=== PATIENT | male | born 1955 | race African-American/Black ===

== ENCOUNTER 2021-03-29 11:59 | Observation (INO) ==
[2021-03-29 12:56] LABS: Basophils # (auto) 0.03 K/uL (0-0.2); Basophils % (auto) 0.2 %; Eosinophils # (auto) 0.01 K/uL (0-0.5); Eosinophils % (auto) 0.1 %; Hematocrit (blood only) 42.9 % (42-52); Hemoglobin 14.8 g/dL (14.0-18.0); Immature Granulocytes # (auto) 0.04 K/uL (0.00-0.02); Immature Granulocytes % (auto) 0.3 %; Lymphocytes # (auto) 1.15 K/uL (1.2-3.4); Lymphocytes % (auto) 7.8 %; Mean Corpuscular Hemoglobin 30.7 pg (25-34); Mean Corpuscular Hgb Conc 34.5 g/dL (32-36); Mean Platelet Volume 8.9 fL (7.4-10.4); Monocytes # (auto) 0.64 K/uL (0.11-0.59); Monocytes % (auto) 4.3 %; Neutrophils # (auto) 12.85 K/uL (1.4-6.5); Neutrophils % (auto) 87.3 %; Platelet Count 395 K/uL (130-400); RDW Coefficient of Variation 14.8 % (11.5-14.5); RDW Standard Deviation 48.5 fL (36.4-46.3); Red Blood Count 4.82 M/uL (4.7-6.1); White Blood Count 14.72 K/uL (4.8-10.8)
[2021-03-29 13:15] LABS: Albumin Level 4.1 gm/dl (3.4-5.0); BUN Creatinine Ratio 14.9 (10-20); Bilirubin,Total 1.1 mg/dl (0.2-1); Calcium 8.7 mg/dl (8.5-10.1); Creatinine Clr Calc Pharmacy 68.2 ml/min; Est GFR (African American) 73.6 ml/min; Est GFR (Non-African American) 63.5 ml/min; Globulin 4.2 gm/dl (2.5-4.0); Total Protein 8.3 gm/dl (6.4-8.2)
--- NOTE | 2021-03-29 13:22 | XRay Report ---
SINGLE VIEW CHEST CLINICAL HISTORY: Illness. Dehydration. FINDINGS: An AP, portable, upright chest radiograph is obtained. No prior studies are available for c omparison at the time of dictation. The cardiomediastinal silhouette is unremarkable. Airspace opaci ties are present at both lung bases. No large pleural effusion or pneumothorax is seen. There are hea led right-sided rib fractures. IMPRESSION: Airspace opacities are present at both lung bases and could represent atelectasis. Correl ate clinically for evidence of an infectious/inflammatory pneumonitis. ACT 112: Negative or not required by law. Electronically signed by: Sharan Yeung M.D. 03/29/2021 1:21 PM
[2021-03-29] MEDS ORDERED: SODIUM CHLORIDE 0.9% 1000ML 500 ML IV ONE (13:43)
[2021-03-29] MEDS ORDERED: SODIUM CHLORIDE 0.9% 1000ML 1,000 ML IV SCH (13:45)
[2021-03-29 14:13] LABS: Potassium 4.2 mmol/L (3.5-5.1)
[2021-03-29 15:27] LABS: Appearance Urine Clear (Clear); Bacteria Urine Automated Negative (Negative); Bilirubin Urine Negative (Negative); Blood Urine Negative (Negative); Color Urine Yellow; Glucose Urine UA Negative (Negative); Ketones Urine Trace (Negative); Leukocyte Esterase Urine 1+ (Negative); Nitrite Urine Negative (Negative); Protein Urine Negative (Negative); Specific Gravity Urine 1.021 (1.000-1.030); Urobilinogen Urine Negative (Negative); pH Urine 6.5 (4.5-7.5)
[2021-03-29 15:38] LABS: RBC Urine Automated 0-4 /hpf (0-4)
--- NOTE | 2021-03-29 17:05 | Electrocardiogram Report ---
Test Reason : Blood Pressure : / mmHG Vent. Rate : 074 BPM Atrial Rate : 074 BPM P-R Int : 198 ms QRS Dur : 078 ms QT Int : 390 ms P-R-T Axes : 062 049 054 degrees QTc Int : 432 ms Normal sinus rhythm No previous ECGs available Confirmed by [place] Rosa ([id number]) on 03/29/2021 5:05:37 PM Referred By: Confirmed By:Cristian De La Rosa
[2021-03-29] MEDS ORDERED: ASPIRIN CHEW 324 MG PO STA (17:37)
--- NOTE | 2021-03-29 20:11 | History & Physical Report ---
Date of Service March 29, 2021 Assessment & Plan (1) Near syncope: Near syncope secondary to dehydration/acute fluid loss secondary to perspiration- Received 500 cc normal saline in the ED, and will continue 100 mils per hour Patient reports feeling completely normal by the time of this evaluation At no time did he have any focal weakness or loss of sensation. Present on Admission?: Yes (2) Dehydration: See above Present on Admission?: Yes (3) Elevated troponin I level: Troponin 0.073 upon admission- The patient will be admitted to telemetry for serial cardiac enzymes, serial EKG's, cardiac rhythm monitoring and a 2-D echocardiogram with Dopplers. Suspect elevation is secondary to supply demand mismatch/type II [place]. Given aspirin 325 mg in the ED. 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 Primary Care Provider: CARON BOURNE The patient is a 65-year-old male with a past medical history including GERD and arthritis, who was working outside in the heat yesterday and today, and was playing with his grandchildren yesterday, when he developed multiple episodes today of lightheadedness dizziness and near syncope. He reports that he was sweating profusely today as well, but thought that he kept up with his water intake, but fears that he did not. He said no previous episodes like this. Work-up in the emergency department included the following significant abnormal laboratories: Troponin 0.073, WBC 14.72. Chest x-ray showed bibasilar atelectasis. Allergies Allergy/AdvReac Type Severity Reaction Status Date / Time No Known Allergies Allergy Unverified 03/29/21 13:07 Home Medications Medication Instructions Recorded Confirmed Type omeprazole 20 mg PO DAILY 03/29/21 03/29/21 History Past Med/Surg History Medical History (Updated 03/30/21 @ 03:30 by Satish Jhaveri MD) Arthritis GERD (gastroesophageal reflux disease) Social History Smoking Status: Never smoker Hx Substance Use: No (Quit 23 yrs ago) Preferred Language: Nauruan Machine Bender Required: No Beliefs That Will Affect Care: None Current Living Situation: Alone Other Information That Helps Us Care for You: No Feels Safe at Home: Yes Safety Concerns: Feels Safe At This Time Assistive Devices: None Review of Systems Review of Systems: The patient denies chest pain, palpitations, shortness of breath, dyspnea on exertion, cough, lower extremity swelling, sore throat, fevers, chills, sweats, nausea, vomiting, diarrhea , constipation, abdominal pain, pelvic pain, blood in urine or stool, dysuria, urinary frequency or urgency, memory loss, loss of consciousness, rash, abnormal bruising or bleeding, imbalance, focal or generalized weakness, numbness or tingling in arms or legs, generalized arthralgias or myalgias, back or neck pain, or night sweats. The review of systems is otherwise negative other than for that already noted above, and at least 10 systems have been reviewed. Physical Exam Physical Exam: The patient is awake, alert and oriented 3, well developed and well nourished, normocephalic and atraumatic, lying in bed and in no acute distress. HEENT--PERRL, EOMI, mucous membranes and oropharynx dry. Neck--supple. No JVD. No bruits. Thyroid normal, trachea midline, no adenopathy. Heart--normal S1 and S2. No murmurs, rubs or gallops. Lungs--clear bilaterally, no respiratory distress, no accessory muscle use. Abdomen--normal bowel sounds and soft. Nontender. Nondistended, no hernias or masses, no organomegaly. Extremities--no cyanosis or clubbing. No edema. Dermatologic--normal skin turgor, normal color, no abnormal lymph nodes, no rash. Neurologic--cranial nerves II through XII grossly intact. Rheumatologic--normal range of motion. Psychiatric--normal affect. Results & Data Results & Data ([facility]) Vital Signs (Past 12 Hours) Vital Signs Temp Pulse Pulse Resp BP BP Pulse Ox 03/29/21 19:30 61 25 H 163/94 H 98 03/29/21 18:30 68 19 166/107 H 98 03/29/21 18:00 67 20 167/102 H 98 03/29/21 17:30 66 22 148/97 H 99 03/29/21 17:00 67 23 165/100 H 99 03/29/21 16:30 68 22 152/103 H 97 03/29/21 16:00 65 19 151/94 H 97 03/29/21 15:30 66 16 155/88 H 99 03/29/21 15:24 63 18 140/97 98 03/29/21 15:00 74 21 140/97 100 03/29/21 14:30 65 22 143/92 H 99 03/29/21 14:00 67 22 138/93 98 03/29/21 13:56 85 21 129/100 03/29/21 13:55 71 19 139/91 03/29/21 13:30 71 19 152/106 H 98 03/29/21 13:00 71 23 136/92 96 03/29/21 12:32 76 17 99 03/29/21 12:31 77 20 146/94 H 97 03/29/21 12:30 73 22 03/29/21 12:28 74 16 03/29/21 12:03 98.4 F 84 18 135/94 98 Laboratory Results Laboratory Results WBC 14.72 K/uL (4.8-10.8) H 03/29/21 12:30 RBC 4.82 M/uL (4.7-6.1) 03/29/21 12:30 Hgb 14.8 g/dL (14.0-18.0) 03/29/21 12:30 Hct 42.9 % (42-52) 03/29/21 12:30 MCV 89.0 fL (80-100) 03/29/21 12:30 MCH 30.7 pg (25-34) 03/29/21 12:30 MCHC 34.5 g/dL (32-36) 03/29/21 12:30 RDW Std Deviation 48.5 fL (36.4-46.3) H 03/29/21 12:30 RDW Coeff of Laura 14.8 % (11.5-14.5) H 03/29/21 12:30 Plt Count 395 K/uL (130-400) 03/29/21 12:30 MPV 8.9 fL (7.4-10.4) 03/29/21 12:30 Immature Gran % (Auto) 0.3 % 03/29/21 12:30 Neut % (Auto) 87.3 % 03/29/21 12:30 Lymph % (Auto) 7.8 % 03/29/21 12:30 [place] % (Auto) 4.3 % 03/29/21 12:30 Eos % (Auto) 0.1 % 03/29/21 12:30 Baso % (Auto) 0.2 % 03/29/21 12:30 Neut # (Auto) 12.85 K/uL (1.4-6.5) H 03/29/21 12:30 Lymph # (Auto) 1.15 K/uL (1.2-3.4) L 03/29/21 12:30 [place] # (Auto) 0.64 K/uL (0.11-0.59) H 03/29/21 12:30 Eos # (Auto) 0.01 K/uL (0-0.5) 03/29/21 12:30 Baso # (Auto) 0.03 K/uL (0-0.2) 03/29/21 12:30 Immature Gran # (Auto) 0.04 K/uL (0.00-0.02) H 03/29/21 12:30 Sodium 138 mmol/L (136-145) 03/29/21 12:30 Potassium 4.2 mmol/L (3.5-5.1) 03/29/21 13:49 Chloride 106 mmol/L (98-107) 03/29/21 12:30 Carbon Dioxide 26 mmol/L (21-32) 03/29/21 12:30 Anion Gap 6.0 (3-11) 03/29/21 12:30 BUN 18 mg/dl (7-18) 03/29/21 12:30 Creatinine 1.18 mg/dl (0.6-1.4) 03/29/21 12:30 Est Cr Clr Drug Dosing 68.2 ml/min 03/29/21 12:30 Est GFR ( Amer) 73.6 ml/min 03/29/21 12:30 Est GFR (Non-Af Amer) 63.5 ml/min 03/29/21 12:30 BUN/Creatinine Ratio 14.9 (10-20) 03/29/21 12:30 Glucose 78 mg/dl (70-99) 03/29/21 12:30 Calcium 8.7 mg/dl (8.5-10.1) 03/29/21 12:30 Total Bilirubin 1.1 mg/dl (0.2-1) H 03/29/21 12:30 AST 20 U/L (15-37) 03/29/21 13:49 ALT 30 U/L (12-78) 03/29/21 12:30 Alkaline Phosphatase 63 U/L (45-117) 03/29/21 12:30 Troponin I 0.069 ng/ml (0-0.045) H* 03/29/21 23:18 Total Protein 8.3 gm/dl (6.4-8.2) H 03/29/21 12:30 Albumin 4.1 gm/dl (3.4-5.0) 03/29/21 12:30 Globulin 4.2 gm/dl (2.5-4.0) H 03/29/21 12:30 Albumin/Globulin Ratio 1.0 (0.9-2) 03/29/21 12:30 Urine Color Yellow 03/29/21 15:06 Urine Appearance Clear (Clear) 03/29/21 15:06 Urine pH 6.5 (4.5-7.5) 03/29/21 15:06 Ur Specific [place] 1.021 (1.000-1.030) 03/29/21 15:06 Urine Protein Negative (Negative) 03/29/21 15:06 Urine Glucose (UA) Negative (Negative) 03/29/21 15:06 Urine Ketones Trace (Negative) H 03/29/21 15:06 Urine Blood Negative (Negative) 03/29/21 15:06 Urine Nitrite Negative (Negative) 03/29/21 15:06 Urine Bilirubin Negative (Negative) 03/29/21 15:06 Urine Urobilinogen Negative (Negative) 03/29/21 15:06 Ur Leukocyte Esterase 1+ (Negative) H 03/29/21 15:06 Urine WBC (Auto) 10-30 /hpf (0-5) H 03/29/21 15:06 Urine RBC (Auto) 0-4 /hpf (0-4) 03/29/21 15:06 U Hyaline Cast (Auto) 10-30 /lpf (0-5) H 03/29/21 15:06 U Epithel Cells (Auto) 10-20 /lpf (0-5) H 03/29/21 15:06 Urine Bacteria (Auto) Negative (Negative) 03/29/21 15:06 COVID-19 Eval Order Covid19 at [facility] 03/29/21 17:45 SARS-CoV-2 (PCR) NEGATIVE (Negative) 03/29/21 17:45 Impressions Chest X-Ray 03/29/21 12:47 SINGLE VIEW CHEST CLINICAL HISTORY: Illness. Dehydration. FINDINGS: An AP, portable, upright chest radiograph is obtained. No prior studies are available for comparison at the time of dictation. The cardiomediastinal silhouette is unremarkable. Airspace opacities are present at both lung bases. No large pleural effusion or pneumothorax is seen. There are healed right-sided rib fractures. IMPRESSION: Airspace opacities are present at both lung bases and could represent atelectasis. Correlate clinically for evidence of an infectious/inflammatory pneumonitis. ACT 112: Negative or not required by law. Electronically signed by: Sharan Yeung M.D. 03/29/2021 1:21 PM Code Status & VTE Plan Code Status Full code VTE Prophylaxis Plan VTE Prophylaxis will be ordered: Yes PG Care Time/CCT Total # of Minutes Spent Total Time Spent with Patient: Total time spent is greater than 50% in coordination of care (as documented) at patient's floor/unit and/or counseling patient: Coding Level of Care Code 02775 OBS Care - Level 3 Diagnoses Near syncope R55 Dehydration E86.0 Elevated troponin I level R77.8 GERD (gastroesophageal reflux disease) K21.9 Arthritis M19.90
[2021-03-29] MEDS ORDERED: NITROGLYCERIN SL 0.4 MG/TAB TAB SL PRN (21:41)
[2021-03-29] MEDS ORDERED: ONDANSETRON INJ 2 MG/ML 2 ML VIAL IV PRN (21:41)
[2021-03-29] MEDS ORDERED: ACETAMINOPHEN 325 MG TAB PO PRN (21:41)
[2021-03-29] MEDS: NSS + 20MEQ KCL 20 MEQ/1,000 ML BAG IV SCH (22:28)
[2021-03-29] MEDS: HEPARIN SOD 5,000 UNIT/0.5 ML VIAL SQ SCH (22:29)
[2021-03-30 07:09] LABS: Basophils # (auto) 0.02 K/uL (0-0.2); Basophils % (auto) 0.2 %; Eosinophils # (auto) 0.18 K/uL (0-0.5); Eosinophils % (auto) 2.2 %; Hematocrit (blood only) 39.4 % (42-52); Hemoglobin 13.5 g/dL (14.0-18.0); Immature Granulocytes # (auto) 0.01 K/uL (0.00-0.02); Immature Granulocytes % (auto) 0.1 %; Lymphocytes # (auto) 2.06 K/uL (1.2-3.4); Mean Corpuscular Hemoglobin 30.5 pg (25-34); Mean Corpuscular Hgb Conc 34.3 g/dL (32-36); Mean Corpuscular Volume 89.1 fL (80-100); Mean Platelet Volume 8.8 fL (7.4-10.4); Monocytes # (auto) 0.47 K/uL (0.11-0.59); Monocytes % (auto) 5.7 %; Neutrophils % (auto) 66.8 %; Platelet Count 338 K/uL (130-400); RDW Coefficient of Variation 14.9 % (11.5-14.5); RDW Standard Deviation 48.8 fL (36.4-46.3); Red Blood Count 4.42 M/uL (4.7-6.1); White Blood Count 8.24 K/uL (4.8-10.8)
[2021-03-30 07:50] LABS: Albumin Level 3.3 gm/dl (3.4-5.0); BUN Creatinine Ratio 20.3 (10-20); Calcium 8.5 mg/dl (8.5-10.1); Creatinine Clr Calc Pharmacy 105.2 ml/min; Est GFR (African American) 109.4 ml/min; Est GFR (Non-African American) 94.4 ml/min; Globulin 3.4 gm/dl (2.5-4.0); Potassium 4.3 mmol/L (3.5-5.1); Total Protein 6.7 gm/dl (6.4-8.2)
[2021-03-30] MEDS: HEPARIN SOD 5,000 UNIT/0.5 ML VIAL SQ SCH (07:50)
[2021-03-30] MEDS: NSS + 20MEQ KCL 20 MEQ/1,000 ML BAG IV SCH (07:50)
[2021-03-30] MEDS ORDERED: ASPIRIN 81 MG CHEW PO SCH (09:00)
[2021-03-30] MEDS ORDERED: PANTOprazole 40 MG TAB PO SCH (09:00)
--- NOTE | 2021-03-30 09:40 | XCELERA ---
[id number]
--- NOTE | 2021-03-30 11:41 | Discharge Summary ---
Date of Service March 30, 2021 Admission HPI Per Admitting Provider The patient is a 65-year-old male with a past medical history including GERD and arthritis, who was working outside in the heat yesterday and today, and was playing with his grandchildren yesterday, when he developed multiple episodes today of lightheadedness dizziness and near syncope. He reports that he was sweating profusely today as well, but thought that he kept up with his water intake, but fears that he did not. He said no previous episodes like this. Work-up in the emergency department included the following significant abnormal laboratories: Troponin 0.073, WBC 14.72. Chest x-ray showed bibasilar atelectasis. Principal Diagnosis Presyncope, dehydrated, Elevated troponin Discharge Exam Constitutional WD/WN, vitals as above Eyes + anicteric sclerae ENMT external ear and nose normal, oropharynx normal Neck trachea midline, no thyromegaly Respiratory normal respiratory effort, lungs clear to auscultation Cardiovascular RRR, no murmur, no edema Chest (Breasts) Chest: normal inspection of chest Gastrointestinal (Abdomen) normal bowel sounds, soft, nontender, no hepatosplenomegaly Musculoskeletal Extremities: extremities normal to inspection; no cyanosis and no clubbing Skin no rashes, warm and dry Neurologic moves all extremities and awake; no focal motor deficits Psychiatric A+Ox3, euthymic affect Lymphatic no lymphedema Discharge Data Allergies Allergy/AdvReac Type Severity Reaction Status Date / Time No Known Allergies Allergy Unverified 03/29/21 13:07 Consultations 03/29/21 20:03 ED Decision to Admit Stat 03/29/21 21:41 Consult Cardiology Routine Procedures Performed Chest X-Ray 03/29/21 12:47 SINGLE VIEW CHEST CLINICAL HISTORY: Illness. Dehydration. FINDINGS: An AP, portable, upright chest radiograph is obtained. No prior studies are available for comparison at the time of dictation. The cardiomediastinal silhouette is unremarkable. Airspace opacities are present at both lung bases. No large pleural effusion or pneumothorax is seen. There are healed right-sided rib fractures. IMPRESSION: Airspace opacities are present at both lung bases and could represent atelectasis. Correlate clinically for evidence of an infectious/inflammatory pneumonitis. ACT 112: Negative or not required by law. Electronically signed by: Sharan Yeung M.D. 03/29/2021 1:21 PM Ordered Studies Laboratory Results WBC 8.24 K/uL (4.8-10.8) 03/30/21 06:53 RBC 4.42 M/uL (4.7-6.1) L 03/30/21 06:53 Hgb 13.5 g/dL (14.0-18.0) L 03/30/21 06:53 Hct 39.4 % (42-52) L 03/30/21 06:53 MCV 89.1 fL (80-100) 03/30/21 06:53 MCH 30.5 pg (25-34) 03/30/21 06:53 MCHC 34.3 g/dL (32-36) 03/30/21 06:53 RDW Std Deviation 48.8 fL (36.4-46.3) H 03/30/21 06:53 RDW Coeff of Laura 14.9 % (11.5-14.5) H 03/30/21 06:53 Plt Count 338 K/uL (130-400) 03/30/21 06:53 MPV 8.8 fL (7.4-10.4) 03/30/21 06:53 Immature Gran % (Auto) 0.1 % 03/30/21 06:53 Neut % (Auto) 66.8 % 03/30/21 06:53 Lymph % (Auto) 25.0 % 03/30/21 06:53 [place] % (Auto) 5.7 % 03/30/21 06:53 Eos % (Auto) 2.2 % 03/30/21 06:53 Baso % (Auto) 0.2 % 03/30/21 06:53 Neut # (Auto) 5.50 K/uL (1.4-6.5) 03/30/21 06:53 Lymph # (Auto) 2.06 K/uL (1.2-3.4) 03/30/21 06:53 [place] # (Auto) 0.47 K/uL (0.11-0.59) 03/30/21 06:53 Eos # (Auto) 0.18 K/uL (0-0.5) 03/30/21 06:53 Baso # (Auto) 0.02 K/uL (0-0.2) 03/30/21 06:53 Immature Gran # (Auto) 0.01 K/uL (0.00-0.02) 03/30/21 06:53 Sodium 140 mmol/L (136-145) 03/30/21 06:53 Potassium 4.3 mmol/L (3.5-5.1) 03/30/21 06:53 Chloride 110 mmol/L (98-107) H 03/30/21 06:53 Carbon Dioxide 25 mmol/L (21-32) 03/30/21 06:53 Anion Gap 5.0 (3-11) 03/30/21 06:53 BUN 15 mg/dl (7-18) 03/30/21 06:53 Creatinine 0.76 mg/dl (0.6-1.4) D 03/30/21 06:53 Est Cr Clr Drug Dosing 105.2 ml/min 03/30/21 06:53 Est GFR ( Amer) 109.4 ml/min 03/30/21 06:53 Est GFR (Non-Af Amer) 94.4 ml/min 03/30/21 06:53 BUN/Creatinine Ratio 20.3 (10-20) H 03/30/21 06:53 Glucose 94 mg/dl (70-99) 03/30/21 06:53 Calcium 8.5 mg/dl (8.5-10.1) 03/30/21 06:53 Total Bilirubin 1.0 mg/dl (0.2-1) 03/30/21 06:53 AST 14 U/L (15-37) L 03/30/21 06:53 ALT 22 U/L (12-78) 03/30/21 06:53 Alkaline Phosphatase 55 U/L (45-117) 03/30/21 06:53 Troponin I 0.069 ng/ml (0-0.045) H* 03/30/21 06:53 Total Protein 6.7 gm/dl (6.4-8.2) 03/30/21 06:53 Albumin 3.3 gm/dl (3.4-5.0) L 03/30/21 06:53 Globulin 3.4 gm/dl (2.5-4.0) 03/30/21 06:53 Albumin/Globulin Ratio 1.0 (0.9-2) 03/30/21 06:53 Urine Color Yellow 03/29/21 15:06 Urine Appearance Clear (Clear) 03/29/21 15:06 Urine pH 6.5 (4.5-7.5) 03/29/21 15:06 Ur Specific [place] 1.021 (1.000-1.030) 03/29/21 15:06 Urine Protein Negative (Negative) 03/29/21 15:06 Urine Glucose (UA) Negative (Negative) 03/29/21 15:06 Urine Ketones Trace (Negative) H 03/29/21 15:06 Urine Blood Negative (Negative) 03/29/21 15:06 Urine Nitrite Negative (Negative) 03/29/21 15:06 Urine Bilirubin Negative (Negative) 03/29/21 15:06 Urine Urobilinogen Negative (Negative) 03/29/21 15:06 Ur Leukocyte Esterase 1+ (Negative) H 03/29/21 15:06 Urine WBC (Auto) 10-30 /hpf (0-5) H 03/29/21 15:06 Urine RBC (Auto) 0-4 /hpf (0-4) 03/29/21 15:06 U Hyaline Cast (Auto) 10-30 /lpf (0-5) H 03/29/21 15:06 U Epithel Cells (Auto) 10-20 /lpf (0-5) H 03/29/21 15:06 Urine Bacteria (Auto) Negative (Negative) 03/29/21 15:06 COVID-19 Eval Order Covid19 at [facility] 03/29/21 17:45 SARS-CoV-2 (PCR) NEGATIVE (Negative) 03/29/21 17:45 ECHO: normal EF, mild LVH, mild elevated RVSP 30-40 mmHg Hospital Course (1) Near syncope: Near syncope secondary to dehydration/acute fluid loss secondary to perspiration- Received IVFs and symptoms completely resolved BP actually mildly elevated on day of discharge No evidence of infection, COVID negative. Vitals stable, no hypoxia (2) Dehydration: See above, resolved (3) Elevated troponin I level: Troponin 0.073 upon admission-trended downward serially ECG without ischemic changes Tele with NSR Suspect elevation is secondary to supply demand mismatch/type II [place]. Given aspirin 325 mg in the ED. Continued aspirin 81 mg every morning here in hospital but no need to continue on discharge ECHO without wall motion abnormalities, preserved EF, mild LVH, mild elevated RVSP Consult cardiology appreciated--> no ischemic eval needed. Never has chest pain or SOB, is very active F/u with PCP after discharge for standard CV preventive strategies (4) GERD (gastroesophageal reflux disease): Continue omeprazole (5) Arthritis: no treatment Dispo-stable for dc to home Total Time Total Time Spent Total Time Spent (In Minutes): 35 min Total Time Includes: Examination of the Patient, Discharge Planning, Medication Reconciliation and Communication With Other Providers (Cardiology) Discharge Plan Discharge Items Patient Disposition: Home - Self-Care Reason For Visit: DEHYDRATED Discharge Diagnosis: Dehydration, presyncope, elevated troponin Condition on Discharge: Good Activity: As commented below Lifting: Gradually increase as tolerated Bathing: No limitations Exercise/Sports: Gradually increase as tolerated Non-emergency contact: Primary Care Provider Call non-emergency contact if: you have any medication questions and your symptoms worsen Follow-up/Referrals: CARON BOURNE [Other] (Follow up within 1-2 weeks ) Diet: Regular Addtl Attending Provider Instructions: You were admitted with lightheadedness likely due to dehydration. You had an elevation in a blood test called "troponin" but it was very mild and did not indicate a heart attack. Your Echocardiogram (ultrasound of the heart) showed some mild thickening of the left side of the heart and mildly elevated pressures on the right side. Otherwise, the function of the heart and all the heart valves were normal. Please follow up with your doctor at home regarding this hospitalization. You don't need any new medications. Your chest xray did show some mild atelectasis ("squishing" down at the bottoms of the lungs) and you should have a repeat chest xray in 2 weeks with your PCP to ensure this returns to normal. Please try to stay hydrated with at least 8-10 glasses of water daily especially when working in the hot sun outdoors. Pending Studies at Discharge: No Stand-Alone Forms: [facility] [employer] ([employer]) Medications and DC Order Prescriptions: Continued omeprazole 20 mg Capsule,Delayed Release(Dr/Ec) 20 mg PO DAILY RF: 0 Discharge Orders: Discharge Order (Routine); Ordered 03/30/21 Ordered By: Greer Montes Admission Data Admit Date/Time: 03/29/21 20:10 Attending Provider: Greer Montes Admit Provider: Satish Jhaveri Other Providers: Lg Soares ; Madhu Cox Coding Level of Care Code 97621 OBS Care - Discharge Diagnoses Near syncope R55 Dehydration E86.0 Elevated troponin I level R77.8 GERD (gastroesophageal reflux disease) K21.9 Arthritis M19.90
--- NOTE | 2021-03-30 11:43 | Cardiology Consultation ---
Date of Consultation March 30, 2021 Assessment & Plan (1) Elevated troponin I level: The absolute elevation in his biomarkers this quite small. The trajectory of his biomarkers is also flat. This does not suggest an acute coronary syndrome. He had no symptoms of cardiac ischemia. Echocardiogram was normal. He has no history of cardiac disease or symptoms consistent with significant coronary disease. I suspect these elevations were simply related to his mild dehydration and possibly some mild hypotension. I do not believe he requires any additional evaluation at this point. I would suggest routine cardiac risk factor modification according to published guidelines. (no current lipid profile available) (2) First degree atrioventricular block: Very mild. Noticed on 1 EKG. Not present on the other. No evidence of higher degree AV block or other conduction disease on telemetry. In the absence of symptoms, no additional evaluation required. 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 It seems that yesterday he was working in the sun in his usual protective gear which involved a respirator, element and cover all suit when he began to experience some dizziness. Patient also experienced some weakness. He rested for a while and drink some water. These interventions improved his symptoms but he was advised by coworkers to seek medical attention. In our emergency room he was administered intravenous fluids and routine lab work was performed which revealed a mild elevation his cardiac biomarkers. As such he was advised to be monitored overnight. The patient states that his symptoms had nearly resolved by the time he reached the emergency department. At no time during his event yesterday did have symptoms of chest discomfort or dyspnea. He is an active individual who is limited to some degree by orthopedic disease involving his left knee. However he does not report exertional symptoms at other times. He has no history of chest pain. He states that he will notice some more rapid heartbeats with activity on occasion, but not at rest. He generally does not have dizziness and only recalls syncope associated with drug use quite remotely. 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 Mood and affect appeared normal. He answered all questions appropriately. HEENT: Pupils are equal and reactive to light and accommodation. Extraocular movements are intact. The sclerae are anicteric. Neuro: Cranial nerves intact Neck: Patient's neck is supple. He has palpable carotid pulses bilaterally without bruits on auscultation. There is no evidence of jugular venous distention. The thyroid is not enlarged. Lungs: Clear to auscultation bilaterally. He has good air movement without use of accessory muscles. No rales wheezes or rhonchi. Cardiac: Heart demonstrates a regular rate and rhythm. Normal S1 and S2. No murmurs on examination. Pulses: The patient has palpable radial pulses bilaterally that are equal in intensity Extremities: There was no evidence of hypoperfusion. There is no cyanosis or clubbing. There is no edema. Skin: I did not appreciate any rashes on examination today. Results & Data ([facility]) Vital Signs (Past 12 Hours) Vital Signs Temp Pulse Pulse Resp BP Pulse Ox 03/30/21 08:40 64 03/30/21 07:54 36.8 C 58 L 20 142/84 H 100 03/30/21 06:29 146/91 H 03/30/21 04:13 36.7 C 61 16 166/88 H 100 03/30/21 00:24 154/99 H 03/30/21 00:00 63 Laboratory Results Abnormal Lab Results 03/29/21 03/29/21 03/29/21 12:30 12:30 13:49 WBC 14.72 H RBC 4.82 Hgb 14.8 Hct 42.9 MCV 89.0 MCH 30.7 MCHC 34.5 RDW Std Deviation 48.5 H RDW Coeff of Laura 14.8 H Plt Count 395 MPV 8.9 Immature Gran % (Auto) 0.3 Neut % (Auto) 87.3 Lymph % (Auto) 7.8 [place] % (Auto) 4.3 Eos % (Auto) 0.1 Baso % (Auto) 0.2 Neut # (Auto) 12.85 H Lymph # (Auto) 1.15 L [place] # (Auto) 0.64 H Eos # (Auto) 0.01 Baso # (Auto) 0.03 Immature Gran # (Auto) 0.04 H Sodium 138 Potassium 4.2 Chloride 106 Carbon Dioxide 26 Anion Gap 6.0 BUN 18 Creatinine 1.18 Est Cr Clr Drug Dosing 68.2 Est GFR ( Amer) 73.6 Est GFR (Non-Af Amer) 63.5 BUN/Creatinine Ratio 14.9 Glucose 78 Calcium 8.7 Total Bilirubin 1.1 H AST 20 ALT 30 Alkaline Phosphatase 63 Troponin I Total Protein 8.3 H Albumin 4.1 Globulin 4.2 H Albumin/Globulin Ratio 1.0 Urine Color Urine Appearance Urine pH Ur Specific [place] Urine Protein Urine Glucose (UA) Urine Ketones Urine Blood Urine Nitrite Urine Bilirubin Urine Urobilinogen Ur Leukocyte Esterase Urine WBC (Auto) Urine RBC (Auto) U Hyaline Cast (Auto) U Epithel Cells (Auto) Urine Bacteria (Auto) COVID-19 Eval Order SARS-CoV-2 (PCR) 03/29/21 03/29/21 03/29/21 13:49 15:06 17:45 WBC RBC Hgb Hct MCV MCH MCHC RDW Std Deviation RDW Coeff of Laura Plt Count MPV Immature Gran % (Auto) Neut % (Auto) Lymph % (Auto) [place] % (Auto) Eos % (Auto) Baso % (Auto) Neut # (Auto) Lymph # (Auto) [place] # (Auto) Eos # (Auto) Baso # (Auto) Immature Gran # (Auto) Sodium Potassium Chloride Carbon Dioxide Anion Gap BUN Creatinine Est Cr Clr Drug Dosing Est GFR ( Amer) Est GFR (Non-Af Amer) BUN/Creatinine Ratio Glucose Calcium Total Bilirubin AST ALT Alkaline Phosphatase Troponin I 0.073 H* Total Protein Albumin Globulin Albumin/Globulin Ratio Urine Color Yellow Urine Appearance Clear Urine pH 6.5 Ur Specific [place] 1.021 Urine Protein Negative Urine Glucose (UA) Negative Urine Ketones Trace H Urine Blood Negative Urine Nitrite Negative Urine Bilirubin Negative Urine Urobilinogen Negative Ur Leukocyte Esterase 1+ H Urine WBC (Auto) 10-30 H Urine RBC (Auto) 0-4 U Hyaline Cast (Auto) 10-30 H U Epithel Cells (Auto) 10-20 H Urine Bacteria (Auto) Negative COVID-19 Eval Order Covid19 at [facility] SARS-CoV-2 (PCR) 03/29/21 03/29/21 03/30/21 17:45 23:18 06:53 WBC 8.24 RBC 4.42 L Hgb 13.5 L Hct 39.4 L MCV 89.1 MCH 30.5 MCHC 34.3 RDW Std Deviation 48.8 H RDW Coeff of Laura 14.9 H Plt Count 338 MPV 8.8 Immature Gran % (Auto) 0.1 Neut % (Auto) 66.8 Lymph % (Auto) 25.0 [place] % (Auto) 5.7 Eos % (Auto) 2.2 Baso % (Auto) 0.2 Neut # (Auto) 5.50 Lymph # (Auto) 2.06 [place] # (Auto) 0.47 Eos # (Auto) 0.18 Baso # (Auto) 0.02 Immature Gran # (Auto) 0.01 Sodium Potassium Chloride Carbon Dioxide Anion Gap BUN Creatinine Est Cr Clr Drug Dosing Est GFR ( Amer) Est GFR (Non-Af Amer) BUN/Creatinine Ratio Glucose Calcium Total Bilirubin AST ALT Alkaline Phosphatase Troponin I 0.069 H* Total Protein Albumin Globulin Albumin/Globulin Ratio Urine Color Urine Appearance Urine pH Ur Specific [place] Urine Protein Urine Glucose (UA) Urine Ketones Urine Blood Urine Nitrite Urine Bilirubin Urine Urobilinogen Ur Leukocyte Esterase Urine WBC (Auto) Urine RBC (Auto) U Hyaline Cast (Auto) U Epithel Cells (Auto) Urine Bacteria (Auto) COVID-19 Eval Order SARS-CoV-2 (PCR) NEGATIVE 03/30/21 03/30/21 06:53 06:53 WBC RBC Hgb Hct MCV MCH MCHC RDW Std Deviation RDW Coeff of Laura Plt Count MPV Immature Gran % (Auto) Neut % (Auto) Lymph % (Auto) [place] % (Auto) Eos % (Auto) Baso % (Auto) Neut # (Auto) Lymph # (Auto) [place] # (Auto) Eos # (Auto) Baso # (Auto) Immature Gran # (Auto) Sodium 140 Potassium 4.3 Chloride 110 H Carbon Dioxide 25 Anion Gap 5.0 BUN 15 Creatinine 0.76 D Est Cr Clr Drug Dosing 105.2 Est GFR ( Amer) 109.4 Est GFR (Non-Af Amer) 94.4 BUN/Creatinine Ratio 20.3 H Glucose 94 Calcium 8.5 Total Bilirubin 1.0 AST 14 L ALT 22 Alkaline Phosphatase 55 Troponin I 0.069 H* Total Protein 6.7 Albumin 3.3 L Globulin 3.4 Albumin/Globulin Ratio 1.0 Urine Color Urine Appearance Urine pH Ur Specific [place] Urine Protein Urine Glucose (UA) Urine Ketones Urine Blood Urine Nitrite Urine Bilirubin Urine Urobilinogen Ur Leukocyte Esterase Urine WBC (Auto) Urine RBC (Auto) U Hyaline Cast (Auto) U Epithel Cells (Auto) Urine Bacteria (Auto) COVID-19 Eval Order SARS-CoV-2 (PCR) Diagnostic Findings Chest x-ray was obtained at the time of admission and only revealed bilateral lower lobe airspace opacities of unclear significance, likely atelectasis Echocardiogram was obtained today which revealed normal LV systolic function. No significant valvular heart disease. I reviewed the source images of his EKGs which demonstrated normal sinus rhythm. First degree AV block. Otherwise unremarkable PG Care Time/CCT Total # of Minutes Spent Total Time Spent with Patient: Total time spent is greater than 50% in coordination of care (as documented) at patient's floor/unit and/or counseling patient: Coding Level of Care Code 61480 OBS Care - Level 3 Diagnoses Elevated troponin I level R77.8 First degree atrioventricular block I44.0
--- NOTE | 2021-03-30 12:13 | Electrocardiogram Report ---
Test Reason : Blood Pressure : / mmHG Vent. Rate : 058 BPM Atrial Rate : 058 BPM P-R Int : 214 ms QRS Dur : 084 ms QT Int : 432 ms P-R-T Axes : 048 050 043 degrees QTc Int : 424 ms Sinus bradycardia with 1st degree A-V block Otherwise normal ECG When compared with ECG of 29-MAR-2021 12:55, No significant change was found Confirmed by [place] Rosa ([id number]) on 03/30/2021 12:13:16 PM Referred By: REFERRED SELF Confirmed By:Cristian De La Rosa
--- NOTE | 2021-03-30 18:03 | Emergency Department Note ---
History of Present Illness General Chief complaint: Dehydration Stated complaint: DEHYDRATED Time Seen by Provider: 03/29/21 13:20 Source: patient and RN notes reviewed Mode of arrival: ambulatory Limitations: no limitations History of Present Illness Provider complaint: Dehydration, near syncope This patient is a 65-year-old male who presents emergency department with complaints of a near syncopal episode while at work today. 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 He states he had a hard hat on and was in the sun when he suddenly became nauseated, diaphoretic and felt as though he may pass out. The patient needed to wait a few minutes until he felt stable enough to come down off of the scaffolding. He denies any chest pain at the time but did vomit x1. He feels as though he was overdressed at the time. He denies any significant pal pitations or racing heart. Patient denies any significant heart history. He is not a smoker. 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 and A total of 10 systems reviewed and were otherwise negative Physical Exam Vital Signs Vital Signs - 24 hr 03/29/21 19:21 03/29/21 19:30 03/29/21 20:00 Pulse Rate 61 63 Pulse Rate from SpO2 Sensor 61 63 Respiratory Rate 25 H 23 Respiratory Effort / Characteristics Non-Labored Spontaneous Respiratory Depth Normal Respiratory Pattern Regular Blood Pressure 163/94 H 141/102 H Blood Pressure Mean 117 115 Pulse Oximetry 98 98 Oxygen Delivery Method Room Air Room Air Vital signs reviewed. General: Well-appearing 65-year-old male, in no significant distress. HEENT: No scleral icterus, PERRLA, neck supple. Atraumatic. Cardiovascular: Regular rate and rhythm, no extra sounds. Pulmonary: Clear to auscultation bilaterally, normal work of breathing. Abdomen: Soft, nontender, nondistended, positive bowel sounds. Musculoskeletal: Atraumatic, no peripheral edema. Neurologic: Patient awake alert and oriented x 3 Skin: Warm, dry, no rash Course Administered Medications Discontinued Medications Aspirin (Aspirin Chew 324 Mg) 324 mg PO NOW STA Stop: 03/29/21 17:38 Last Admin: 03/29/21 17:55 Dose: 324 mg Documented by: [id number] Aspirin (Aspirin 81 Mg Chew) 81 mg PO QAM [facility] Stop: 04/29/21 08:59 Last Admin: 03/30/21 07:51 Dose: 81 mg Documented by: [id number] Heparin Sodium (Porcine) (Heparin Sod 5,000 Unit/0.5 Ml Vial) 5,000 units SQ Q12 [facility] Stop: 04/28/21 21:40 Last Admin: 03/30/21 07:50 Dose: Not Given Documented by: [id number] Admin: 03/29/21 22:29 Dose: Not Given Documented by: [id number] Sodium Chloride (Nss 1000ml) 500 mls @ 999 mls/hr IV .Q31M ONE Stop: 03/29/21 14:13 Last Infusion: 03/29/21 14:53 Dose: 0 mls/hr Documented by: [id number] Admin: 03/29/21 13:58 Dose: 999 mls/hr Documented by: [id number] Sodium Chloride (Nss 1000ml) 1,000 mls @ 125 mls/hr IV .Q8H VÍCTOR Stop: 04/28/21 13:44 Last Infusion: 03/29/21 19:19 Dose: 0 mls/hr Documented by: [id number] Admin: 03/29/21 13:57 Dose: 125 mls/hr Documented by: [id number] Potassium Chloride/Sodium Chloride (Normal Saline W/20 Meq Kcl) 20 meq in 1,000 mls @ 100 mls/hr IV .Q10H VÍCTOR Stop: 04/28/21 21:59 Last Admin: 03/30/21 07:50 Dose: 100 mls/hr Documented by: [id number] Infusion: 03/30/21 07:50 Dose: 100 mls/hr Documented by: [id number] Admin: 03/29/21 22:28 Dose: 100 mls/hr Documented by: [id number] Pantoprazole Sodium (Pantoprazole 40 Mg Tab) 40 mg PO DAILY VÍCTOR Stop: 04/29/21 08:59 Last Admin: 03/30/21 07:51 Dose: 40 mg Documented by: [id number] Medical Decision Making Differential Diagnosis Vasovagal event, dehydration, infection, hypoglycemia, electrolyte abnormalities, cardiac sources, intracerebral event, pulmonary embolism, seizure, toxicologic, neurologic, as well as other pathologies. Medical Records Attestation: I reviewed the patient's medical records. Home Medications Current Medication List: was personally reviewed by me Laboratory Data Attestation: I reviewed the patient's lab results. Result diagrams: 03/30/21 06:53 03/30/21 06:53 Lab Results 03/29/21 03/29/21 03/29/21 Range/Units 12:30 12:30 13:49 WBC 14.72 H (4.8-10.8) K/uL RBC 4.82 (4.7-6.1) M/uL Hgb 14.8 (14.0-18.0) g/dL Hct 42.9 (42-52) % MCV 89.0 (80-100) fL MCH 30.7 (25-34) pg MCHC 34.5 (32-36) g/dL RDW Std Deviation 48.5 H (36.4-46.3) fL RDW Coeff of Laura 14.8 H (11.5-14.5) % Plt Count 395 (130-400) K/uL MPV 8.9 (7.4-10.4) fL Immature Gran % (Auto) 0.3 % Neut % (Auto) 87.3 % Lymph % (Auto) 7.8 % [place] % (Auto) 4.3 % Eos % (Auto) 0.1 % Baso % (Auto) 0.2 % Neut # (Auto) 12.85 H (1.4-6.5) K/uL Lymph # (Auto) 1.15 L (1.2-3.4) K/uL [place] # (Auto) 0.64 H (0.11-0.59) K/uL Eos # (Auto) 0.01 (0-0.5) K/uL Baso # (Auto) 0.03 (0-0.2) K/uL Immature Gran # (Auto) 0.04 H (0.00-0.02) K/uL Sodium 138 (136-145) mmol/L Potassium 4.2 (3.5-5.1) mmol/L Chloride 106 (98-107) mmol/L Carbon Dioxide 26 (21-32) mmol/L Anion Gap 6.0 (3-11) BUN 18 (7-18) mg/dl Creatinine 1.18 (0.6-1.4) mg/dl Est Cr Clr Drug Dosing 68.2 ml/min Est GFR ( Amer) 73.6 ml/min Est GFR (Non-Af Amer) 63.5 ml/min BUN/Creatinine Ratio 14.9 (10-20) Glucose 78 (70-99) mg/dl Calcium 8.7 (8.5-10.1) mg/dl Total Bilirubin 1.1 H (0.2-1) mg/dl AST 20 (15-37) U/L ALT 30 (12-78) U/L Alkaline Phosphatase 63 (45-117) U/L Troponin I (0-0.045) ng/ml Total Protein 8.3 H (6.4-8.2) gm/dl Albumin 4.1 (3.4-5.0) gm/dl Globulin 4.2 H (2.5-4.0) gm/dl Albumin/Globulin Ratio 1.0 (0.9-2) Urine Color Urine Appearance (Clear) Urine pH (4.5-7.5) Ur Specific [place] (1.000-1.030) Urine Protein (Negative) Urine Glucose (UA) (Negative) Urine Ketones (Negative) Urine Blood (Negative) Urine Nitrite (Negative) Urine Bilirubin (Negative) Urine Urobilinogen (Negative) Ur Leukocyte Esterase (Negative) Urine WBC (Auto) (0-5) /hpf Urine RBC (Auto) (0-4) /hpf U Hyaline Cast (Auto) (0-5) /lpf U Epithel Cells (Auto) (0-5) /lpf Urine Bacteria (Auto) (Negative) COVID-19 Eval Order SARS-CoV-2 (PCR) (Negative) 0603/29/21 03/29/21 Range/Units 13:49 15:06 17:45 WBC (4.8-10.8) K/uL RBC (4.7-6.1) M/uL Hgb (14.0-18.0) g/dL Hct (42-52) % MCV (80-100) fL MCH (25-34) pg MCHC (32-36) g/dL RDW Std Deviation (36.4-46.3) fL RDW Coeff of Laura (11.5-14.5) % Plt Count (130-400) K/uL MPV (7.4-10.4) fL Immature Gran % (Auto) % Neut % (Auto) % Lymph % (Auto) % [place] % (Auto) % Eos % (Auto) % Baso % (Auto) % Neut # (Auto) (1.4-6.5) K/uL Lymph # (Auto) (1.2-3.4) K/uL [place] # (Auto) (0.11-0.59) K/uL Eos # (Auto) (0-0.5) K/uL Baso # (Auto) (0-0.2) K/uL Immature Gran # (Auto) (0.00-0.02) K/uL Sodium (136-145) mmol/L Potassium (3.5-5.1) mmol/L Chloride (98-107) mmol/L Carbon Dioxide (21-32) mmol/L Anion Gap (3-11) BUN (7-18) mg/dl Creatinine (0.6-1.4) mg/dl Est Cr Clr Drug Dosing ml/min Est GFR ( Amer) ml/min Est GFR (Non-Af Amer) ml/min BUN/Creatinine Ratio (10-20) Glucose (70-99) mg/dl Calcium (8.5-10.1) mg/dl Total Bilirubin (0.2-1) mg/dl AST (15-37) U/L ALT (12-78) U/L Alkaline Phosphatase (45-117) U/L Troponin I 0.073 H* (0-0.045) ng/ml Total Protein (6.4-8.2) gm/dl Albumin (3.4-5.0) gm/dl Globulin (2.5-4.0) gm/dl Albumin/Globulin Ratio (0.9-2) Urine Color Yellow Urine Appearance Clear (Clear) Urine pH 6.5 (4.5-7.5) Ur Specific [place] 1.021 (1.000-1.030) Urine Protein Negative (Negative) Urine Glucose (UA) Negative (Negative) Urine Ketones Trace H (Negative) Urine Blood Negative (Negative) Urine Nitrite Negative (Negative) Urine Bilirubin Negative (Negative) Urine Urobilinogen Negative (Negative) Ur Leukocyte Esterase 1+ H (Negative) Urine WBC (Auto) 10-30 H (0-5) /hpf Urine RBC (Auto) 0-4 (0-4) /hpf U Hyaline Cast (Auto) 10-30 H (0-5) /lpf U Epithel Cells (Auto) 10-20 H (0-5) /lpf Urine Bacteria (Auto) Negative (Negative) COVID-19 Eval Order Covid19 at [facility] SARS-CoV-2 (PCR) (Negative) 03/29/21 Range/Units 17:45 WBC (4.8-10.8) K/uL RBC (4.7-6.1) M/uL Hgb (14.0-18.0) g/dL Hct (42-52) % MCV (80-100) fL MCH (25-34) pg MCHC (32-36) g/dL RDW Std Deviation (36.4-46.3) fL RDW Coeff of Laura (11.5-14.5) % Plt Count (130-400) K/uL MPV (7.4-10.4) fL Immature Gran % (Auto) % Neut % (Auto) % Lymph % (Auto) % [place] % (Auto) % Eos % (Auto) % Baso % (Auto) % Neut # (Auto) (1.4-6.5) K/uL Lymph # (Auto) (1.2-3.4) K/uL [place] # (Auto) (0.11-0.59) K/uL Eos # (Auto) (0-0.5) K/uL Baso # (Auto) (0-0.2) K/uL Immature Gran # (Auto) (0.00-0.02) K/uL Sodium (136-145) mmol/L Potassium (3.5-5.1) mmol/L Chloride (98-107) mmol/L Carbon Dioxide (21-32) mmol/L Anion Gap (3-11) BUN (7-18) mg/dl Creatinine (0.6-1.4) mg/dl Est Cr Clr Drug Dosing ml/min Est GFR ( Amer) ml/min Est GFR (Non-Af Amer) ml/min BUN/Creatinine Ratio (10-20) Glucose (70-99) mg/dl Calcium (8.5-10.1) mg/dl Total Bilirubin (0.2-1) mg/dl AST (15-37) U/L ALT (12-78) U/L Alkaline Phosphatase (45-117) U/L Troponin I (0-0.045) ng/ml Total Protein (6.4-8.2) gm/dl Albumin (3.4-5.0) gm/dl Globulin (2.5-4.0) gm/dl Albumin/Globulin Ratio (0.9-2) Urine Color Urine Appearance (Clear) Urine pH (4.5-7.5) Ur Specific [place] (1.000-1.030) Urine Protein (Negative) Urine Glucose (UA) (Negative) Urine Ketones (Negative) Urine Blood (Negative) Urine Nitrite (Negative) Urine Bilirubin (Negative) Urine Urobilinogen (Negative) Ur Leukocyte Esterase (Negative) Urine WBC (Auto) (0-5) /hpf Urine RBC (Auto) (0-4) /hpf U Hyaline Cast (Auto) (0-5) /lpf U Epithel Cells (Auto) (0-5) /lpf Urine Bacteria (Auto) (Negative) COVID-19 Eval Order SARS-CoV-2 (PCR) NEGATIVE (Negative) Imaging Data Radiologist's Impression: Chest X-Ray 03/29/21 12:47 SINGLE VIEW CHEST CLINICAL HISTORY: Illness. Dehydration. FINDINGS: An AP, portable, upright chest radiograph is obtained. No prior studies are available for comparison at the time of dictation. The cardiomediastinal silhouette is unremarkable. Airspace opacities are present at both lung bases. No large pleural effusion or pneumothorax is seen. There are healed right-sided rib fractures. IMPRESSION: Airspace opacities are present at both lung bases and could represe nt atelectasis. Correlate clinically for evidence of an infectious/inflammatory pneumonitis. ACT 112: Negative or not required by law. Electronically signed by: Sharan Yeung M.D. 03/29/2021 1:21 PM ECG Data Attestation: I personally reviewed and interpreted this ECG as follows: Indication: + other (Near syncope) Rate (beats per minute): 58 Rhythm: + sinus bradycardia ECG Intervals/blocks: + First degree AV block ECG [place]: + Normal ECG ST segments: + Normal ST segments and + Nonspecific ST abnormalities ECG Findings: no PACs and no PVCs Blood Pressure Blood Pressure Findings: Elevated blood pressure Blood Pressure Disposition: did not require urgent referral MDM Narrative This patient was evaluated and appeared to be in no significant distress. IV access was obtained and laboratory work was drawn. An order for cardiac monitoring was placed and the patient is noted to be in a first-degree AV block at 74 bpm. IV normal saline solution was administered. Patient's laboratory work is reassuring with the exception of a very slightly elevated troponin of 0.073. Patient's EKG reveals no evidence of acute ischemia however given the p atient's near syncopal event, it is difficult to exclude cardiac arrhythmia versus a demand mediated process. Patient was given aspirin 324 mg to chew. He was advised of the findings. The hospitalist was consulted. The patient will be evaluated for further management. He is aware of the findings and plan and agrees. Impression & Plan Near syncope, Elevated troponin I level Discharge Plan Visit Data Chief Complaint: Dehydration Stated Complaint: DEHYDRATED ED Provider: Keiko Kasper Discharge Problem: Near syncope, Elevated troponin I level Patient Disposition: Admitted As Inpatient Condition: Good Discharge Instructions Interventions: ED Discharge Assessment Last Done: 03/29/21 21:21
== END 2021-03-30 12:32 | disposition home or self-care (01) ==
LOC: ED 11:59 → 2S 11:59 → SUATTDRO 20:10 → 2S 21:21